=== PATIENT | female | born 1930 | race Caucasian/White ===

== ENCOUNTER 2017-06-01 00:34 | Inpatient (IN) | payer MEDICARE, OTHER ==
[~2017-06-01] VITALS: Ht 154.9 cm; Wt 56.3 kg
[2017-06-01 01:02] LABS: Basophils # (auto) 0 uL; Basophils % (auto) 0.1 % (0.0-2.0); Eosinophils # (auto) 0 uL; Eosinophils % (auto) 0.2 % (0.0-7.0); Hematocrit 35.7 % (41.0-53.0); Hemoglobin 11.6 g/dL (13.5-17.5); Lymphocytes # (auto) 0.6 uL; Lymphocytes % (auto) 4.8 % (10.0-50.0); Mean Corpuscular Hemoglobin 31.2 pg (28.0-32.0); Mean Corpuscular Hgb Conc. 32.4 g/dL (32.0-36.0); Mean Corpuscular Volume 96.3 fL (80.0-100.0); Monocytes # (auto) 0.7 uL; Monocytes % (auto) 6.2 % (0.0-12.0); Neutrophils # (auto) 10.4 uL; Neutrophils % (auto) 88.7 % (37.0-80.0); Platelet Count (auto) 157 10^3/uL (140-450); Red Blood Cells 3.71 10^6/uL (4.5-5.90); Red Cell Distribution Width 13.4 % (11.8-14.3); White Blood Cell 11.7 10^3/uL (4.4-10.8)
[2017-06-01 01:20] LABS: Alanine Aminotransferase 29 U/L (16-61); Albumin 4.2 g/dL (3.4-5.0); Anion Gap 8 (5-15); Aspartate Aminotransferase 46 U/L (15-37); BUN/Creatinine Ratio 19.8; Blood Urea Nitrogen 17 mg/dL (7-18); Calcium 8.7 mg/dL (8.5-10.1); Carbon Dioxide 32 mmol/L (21-32); Chloride 102 mmol/L (98-107); GFR African American 109 mL/min; GFR Non-African American 90 mL/min; Glucose 115 mg/dL (74-106); Magnesium 2.4 mg/dL (1.6-2.6); Sodium 142 mmol/L (136-145)
[2017-06-01 01:25] LABS: Alkaline Phosphatase 116 U/L (45-117); Bilirubin, Total 0.9 mg/dL (0.2-1.0); Total Protein 7.3 g/dL (6.4-8.2)
[2017-06-01 01:28] LABS: INR 1.04 (0.9-1.15); Partial Thromboplastin Time 25.5 sec (22.64-33.71); Prothrombin Time 11.3 sec (9.37-12.3)
[2017-06-01] MEDS ORDERED: MORPHINE SULFATE 4 MG/ML SYR/VIAL IV ONE (04:45)
[2017-06-01] MEDS ORDERED: ASPirin 81 mg TAB PO ONE (07:30)
[2017-06-01] MEDS ORDERED: MORPHINE SULFATE 10 MG/5 ML ORAL SOLN PO ONE (07:45)
[2017-06-01] MEDS ORDERED: NITROGLYCERIN 0.4 MG SL TAB SL PRN ×2 (10:00)
[2017-06-01] MEDS ORDERED: ONDANSETRON HCL 4 MG/2 ML VIAL IV PRN (10:00)
[2017-06-01] MEDS ORDERED: ACETAMINOPHEN 325 MG TAB PO PRN (10:00)
[2017-06-01] MEDS ORDERED: MORPHINE SULFATE 4 MG/ML SYR/VIAL IV PRN ×2 (10:00)
[2017-06-01] MEDS ORDERED: ZOLPIDEM TARTRATE 5 MG TAB PO PRN (10:00)
[2017-06-01] MEDS ORDERED: CLOPIDOGREL BISULFATE 75 MG TAB PO SCH (10:00)
[2017-06-01] MEDS ORDERED: ASCORBIC ACID 500 MG TAB PO ONE (10:15)
[2017-06-01] MEDS ORDERED: cefTRIAXone 1GM/10ml IVPUSH 10 ML IV ONE (10:30)
[2017-06-01 10:33] LABS: Lipase 13333 U/L (73-393)
[2017-06-01] MEDS: DOCUSATE SOD 100 MG CAP PO SCH (10:47)
[2017-06-01] MEDS: CARVEDILOL 3.125 MG TAB PO SCH ×2 (10:47→21:58)
[2017-06-01] MEDS: ASPirin 81 mg TAB PO SCH (10:47)
[2017-06-01] MEDS: ENALAPRIL MALEATE 2.5 MG TAB PO SCH ×2 (10:48→21:58)
[2017-06-01] MEDS: ALBUTEROL SULF 2.5 MG/0.5ML(0.5%) NEB SOLN NEB SCH ×4 (11:09→23:09)
[2017-06-01 11:21] LABS: Amylase 1540 U/L (25-115)
[2017-06-01] MEDS ORDERED: ALPR0.25 PO (11:59)
[2017-06-01] MEDS ORDERED: FURO40TA PO (11:59)
[2017-06-01] MEDS ORDERED: POTA10TA51 PO (11:59)
[2017-06-01] MEDS ORDERED: ASPI325T4 PO (11:59)
[2017-06-01] MEDS ORDERED: MORP1SOL7 PO (11:59)
[2017-06-01] MEDS ORDERED: CAR3125T PO (11:59)
[2017-06-01] MEDS ORDERED: ALBU2TAB4 PO (11:59)
[2017-06-01] MEDS ORDERED: FLUT50AE IN (11:59)
[2017-06-01] MEDS: MORPHINE SULFATE 4 MG/ML SYR/VIAL IV PRN ×2 (12:10→16:30)
[2017-06-01 12:29] VITALS: BP 111/65
[2017-06-01] MEDS: SODIUM CHLOR 0.9% PF (SALINE LOCK) 10ML VIAL IV SCH ×2 (14:00→22:24)
[2017-06-01 14:24] VITALS: BP 111/65
[2017-06-01] MEDS: metroNIDAZOLE 500MG/100ML 100 ML IV SCH ×2 (14:48→22:24)
[2017-06-01] MEDS: MORPHINE SULF 15mg ER tab PO SCH ×2 (15:02→22:25)
[2017-06-01 16:30] VITALS: BP 97/60
[2017-06-01 21:43] VITALS: BP 94/55
[2017-06-01] MEDS: ATORVASTATIN 20 MG TAB PO SCH (22:24)
[2017-06-02] MEDS: ALBUTEROL SULF 2.5 MG/0.5ML(0.5%) NEB SOLN NEB SCH ×6 (02:45→23:23)
[2017-06-02 05:23] VITALS: BP 97/59
[2017-06-02] MEDS: SODIUM CHLOR 0.9% PF (SALINE LOCK) 10ML VIAL IV SCH ×3 (05:30→22:26)
[2017-06-02] MEDS: metroNIDAZOLE 500MG/100ML 100 ML IV SCH ×3 (05:44→22:19)
[2017-06-02] MEDS: MORPHINE SULF 15mg ER tab PO SCH ×2 (05:45→22:20)
[2017-06-02 06:44] LABS: Basophils # (auto) 0 uL; Basophils % (auto) 0.3 % (0.0-2.0); Eosinophils # (auto) 0.1 uL; Eosinophils % (auto) 1.6 % (0.0-7.0); Hematocrit 33.1 % (36.0-46.0); Hemoglobin 10.8 g/dL (12.2-16.2); Lymphocytes # (auto) 0.8 uL; Lymphocytes % (auto) 12.6 % (10.0-50.0); Mean Corpuscular Hemoglobin 31.7 pg (28.0-32.0); Mean Corpuscular Hgb Conc. 32.7 g/dL (32.0-36.0); Mean Corpuscular Volume 97.1 fL (80.0-100.0); Monocytes # (auto) 0.5 uL; Monocytes % (auto) 7.5 % (0.0-12.0); Neutrophils # (auto) 5.3 uL; Platelet Count (auto) 121 10^3/uL (140-450); Red Blood Cells 3.41 10^6/uL (4.0-5.20); Red Cell Distribution Width 13.3 % (11.8-14.3); White Blood Cell 6.7 10^3/uL (4.4-10.8)
[2017-06-02 06:48] LABS: Calcium 8.5 mg/dL (8.5-10.1); Magnesium 2.6 mg/dL (1.6-2.6)
[2017-06-02 06:51] LABS: Albumin 3.7 g/dL (3.4-5.0)
[2017-06-02 06:54] LABS: Bilirubin, Total 0.8 mg/dL (0.2-1.0); Total Protein 6.8 g/dL (6.4-8.2)
[2017-06-02 08:00] VITALS: BP 108/59
[2017-06-02] MEDS: MORPHINE SULFATE 4 MG/ML SYR/VIAL IV PRN (08:02)
[2017-06-02 08:30] VITALS: BP 108/59
[2017-06-02] MEDS: ENALAPRIL MALEATE 2.5 MG TAB PO SCH ×2 (09:48→22:20)
[2017-06-02] MEDS: ASPirin 81 mg TAB PO SCH (09:49)
[2017-06-02] MEDS: ASCORBIC ACID 500 MG TAB PO SCH (09:49)
[2017-06-02 09:50] LABS: Amylase 447 U/L (25-115); Lipase 2395 U/L (73-393)
[2017-06-02] MEDS: DOCUSATE SOD 100 MG CAP PO SCH (09:50)
[2017-06-02] MEDS: CARVEDILOL 3.125 MG TAB PO SCH ×2 (09:53→22:20)
[2017-06-02] MEDS: D5W/SOD CHL 0.45% 1,000 ML IV SCH (09:58)
[2017-06-02] MEDS: cefTRIAXone 1GM/10ml IVPUSH 10 ML IV SCH (09:58)
[2017-06-02 11:19] LABS: Urine Bacteria NONE SEEN /hpf (None Seen); Urine Blood Negative /uL (Negative); Urine Mucus FEW (None Seen); Urine Specific Gravity 1.027 (1.001-1.035); Urine WBC 5 /hpf (0 - 5)
[2017-06-02 12:24] VITALS: BP 108/61
[2017-06-02 17:21] VITALS: BP 109/60
[2017-06-02 22:00] VITALS: BP 114/58
[2017-06-02] MEDS: ATORVASTATIN 20 MG TAB PO SCH (22:20)
[2017-06-03] MEDS: D5W/SOD CHL 0.45% 1,000 ML IV SCH ×2 (00:45→12:21)
[2017-06-03] MEDS: ALBUTEROL SULF 2.5 MG/0.5ML(0.5%) NEB SOLN NEB SCH ×6 (02:00→22:18)
[2017-06-03 05:00] VITALS: BP 108/59
[2017-06-03] MEDS: SODIUM CHLOR 0.9% PF (SALINE LOCK) 10ML VIAL IV SCH ×3 (06:29→21:29)
[2017-06-03] MEDS: metroNIDAZOLE 500MG/100ML 100 ML IV SCH ×3 (06:29→21:26)
[2017-06-03] MEDS: MORPHINE SULF 15mg ER tab PO SCH ×3 (06:33→21:28)
[2017-06-03 07:33] LABS: Basophils # (auto) 0 uL; Basophils % (auto) 0.2 % (0.0-2.0); Eosinophils # (auto) 0.1 uL; Eosinophils % (auto) 1.7 % (0.0-7.0); Hematocrit 30.8 % (36.0-46.0); Hemoglobin 10.1 g/dL (12.2-16.2); Lymphocytes # (auto) 0.6 uL; Lymphocytes % (auto) 9.5 % (10.0-50.0); Mean Corpuscular Hemoglobin 32.2 pg (28.0-32.0); Mean Corpuscular Volume 97.7 fL (80.0-100.0); Monocytes # (auto) 0.5 uL; Monocytes % (auto) 8.1 % (0.0-12.0); Neutrophils # (auto) 5.3 uL; Neutrophils % (auto) 80.5 % (37.0-80.0); Nucleated Red Blood Cells % 0.1 %; Platelet Count (auto) 114 10^3/uL (140-450); Red Blood Cells 3.15 10^6/uL (4.0-5.20); Red Cell Distribution Width 13.3 % (11.8-14.3); White Blood Cell 6.6 10^3/uL (4.4-10.8)
[2017-06-03 07:56] LABS: Albumin 3.3 g/dL (3.4-5.0); BUN/Creatinine Ratio 27.8; Bilirubin, Total 0.7 mg/dL (0.2-1.0); Calcium 8.6 mg/dL (8.5-10.1); Magnesium 2.6 mg/dL (1.6-2.6); Potassium 3.9 mmol/L (3.5-5.1); Total Protein 6.6 g/dL (6.4-8.2)
[2017-06-03 08:00] VITALS: BP 92/43
[2017-06-03 09:25] VITALS: BP 92/43
[2017-06-03] MEDS: DOCUSATE SOD 100 MG CAP PO SCH (09:40)
[2017-06-03] MEDS: cefTRIAXone 1GM/10ml IVPUSH 10 ML IV SCH (09:40)
[2017-06-03] MEDS: ASPirin 81 mg TAB PO SCH (09:40)
[2017-06-03] MEDS: ENALAPRIL MALEATE 2.5 MG TAB PO SCH ×2 (09:41→21:28)
[2017-06-03] MEDS: CARVEDILOL 3.125 MG TAB PO SCH ×2 (09:41→21:27)
[2017-06-03] MEDS: ASCORBIC ACID 500 MG TAB PO SCH (09:42)
[2017-06-03] MEDS: LORazepam 0.5 MG TAB PO PRN ×2 (09:45→16:17)
[2017-06-03 12:53] VITALS: BP 111/54
[2017-06-03 17:00] VITALS: BP 101/52
[2017-06-03] MEDS: ATORVASTATIN 20 MG TAB PO SCH (21:26)
[2017-06-03 22:28] VITALS: BP 126/72
[2017-06-04] MEDS: D5W/SOD CHL 0.45% 1,000 ML IV SCH (01:45)
[2017-06-04] MEDS: ALBUTEROL SULF 2.5 MG/0.5ML(0.5%) NEB SOLN NEB SCH ×4 (02:32→13:55)
[2017-06-04 05:00] VITALS: BP 117/68
[2017-06-04] MEDS: metroNIDAZOLE 500MG/100ML 100 ML IV SCH ×2 (06:05→14:00)
[2017-06-04] MEDS: MORPHINE SULF 15mg ER tab PO SCH ×2 (06:05→14:00)
[2017-06-04] MEDS: SODIUM CHLOR 0.9% PF (SALINE LOCK) 10ML VIAL IV SCH ×2 (06:06→14:00)
[2017-06-04 06:46] LABS: Basophils # (auto) 0 uL; Basophils % (auto) 0.4 % (0.0-2.0); Eosinophils # (auto) 0.1 uL; Eosinophils % (auto) 1.8 % (0.0-7.0); Hematocrit 28.9 % (36.0-46.0); Hemoglobin 9.5 g/dL (12.2-16.2); Lymphocytes # (auto) 0.6 uL; Mean Corpuscular Hgb Conc. 32.8 g/dL (32.0-36.0); Mean Corpuscular Volume 97.6 fL (80.0-100.0); Monocytes # (auto) 0.4 uL; Monocytes % (auto) 8.7 % (0.0-12.0); Neutrophils # (auto) 3.4 uL; Neutrophils % (auto) 76.1 % (37.0-80.0); Platelet Count (auto) 119 10^3/uL (140-450); Red Blood Cells 2.97 10^6/uL (4.0-5.20); Red Cell Distribution Width 13.2 % (11.8-14.3); White Blood Cell 4.4 10^3/uL (4.4-10.8)
[2017-06-04 07:02] LABS: Calcium 7.5 mg/dL (8.5-10.1); Potassium 3.4 mmol/L (3.5-5.1)
[2017-06-04 07:06] LABS: Bilirubin, Total 0.4 mg/dL (0.2-1.0); Total Protein 5.7 g/dL (6.4-8.2)
[2017-06-04 09:19] VITALS: BP 128/58
[2017-06-04] MEDS: cefTRIAXone 1GM/10ml IVPUSH 10 ML IV SCH (09:49)
[2017-06-04] MEDS: DOCUSATE SOD 100 MG CAP PO SCH (09:53)
[2017-06-04] MEDS: ASCORBIC ACID 500 MG TAB PO SCH (09:53)
[2017-06-04] MEDS: ASPirin 81 mg TAB PO SCH (09:53)
[2017-06-04] MEDS: CARVEDILOL 3.125 MG TAB PO SCH (09:54)
[2017-06-04] MEDS: ENALAPRIL MALEATE 2.5 MG TAB PO SCH (09:54)
[2017-06-04 10:45] VITALS: BP 128/58
[2017-06-04 12:15] VITALS: BP 128/58
[2017-06-04 13:00] VITALS: BP 105/52
== END 2017-06-04 14:40 | disposition hospice, home (50) | DRG 438 ==
LOC: EDBD 00:34 → ER 00:37 → EDSEX 00:37 → TELE 00:38 → TELE-EAST 11:31
PROVIDERS: ADMIT Internal Medicine; ATTEND Family Medicine
DX: K85.90 Acute pancreatitis without necrosis or infection, unspecified (principal); I50.43 Acute on chronic combined systolic (congestive) and diastolic (congestive) heart failure; J96.11 Chronic respiratory failure with hypoxia; I48.0 Paroxysmal atrial fibrillation; I48.92 Unspecified atrial flutter; I11.0 Hypertensive heart disease with heart failure; J44.9 Chronic obstructive pulmonary disease, unspecified; I71.4 Abdominal aortic aneurysm, without rupture; I49.3 Ventricular premature depolarization; Z66 Do not resuscitate; D63.8 Anemia in other chronic diseases classified elsewhere; E78.5 Hyperlipidemia, unspecified; Z51.5 Encounter for palliative care; G89.29 Other chronic pain; I25.10 Atherosclerotic heart disease of native coronary artery without angina pectoris; I70.0 Atherosclerosis of aorta; Z99.81 Dependence on supplemental oxygen; I25.2 Old myocardial infarction; Z95.1 Presence of aortocoronary bypass graft; Z88.6 Allergy status to analgesic agent; Z88.8 Allergy status to other drugs, medicaments and biological substances
CPT/HCPCS: 36415; 71045; 74176; 78582; 80053; 80061; 81001; 82150; 82962; 83690; 83735; 83880; 84443; 84484; 85025; 85379; 85610; 85730; 87086; 93005; 93306; 93970; 94640; 94761; 96374; 96375; J3490